=== PATIENT | female | born 1995 | race Two or more races ===

== ENCOUNTER 2021-10-10 12:29 | Emergency (ER) | payer MEDICAID, OTHER ==
[2021-10-10] MEDS ORDERED: Ketorolac 60 MG/2 ML SDV IM ONE (15:17)
[2021-10-10] MEDS ORDERED: Acetaminophen/oxyCODONE 325-5 MG Tab PO ONE (15:20)
== END 2021-10-10 17:00 | disposition home or self-care (01) ==
LOC: MW.ED 12:29
DX: N92.0 Excessive and frequent menstruation with regular cycle (principal)
CPT/HCPCS: 81001; 81025; 96372; 99284; A9270; J1885

== ENCOUNTER 2021-10-11 21:40 | Emergency (ER) | payer MEDICAID ==
[2021-10-11 22:53] LABS: BLOOD UREA NITROGEN,BUN 16 mg/dL (7.0-18.0); CARBON DIOXIDE,CO2 26.2 mmol/L (21.0-32.0); CHLORIDE,CL 106 mmol/L (98-107); GLUCOSE RANDOM 93 mg/dL (74-106); POTASSIUM,K 3.8 mmol/L (3.5-5.1); SODIUM,NA 144 mmol/L (136-145)
[2021-10-11] MEDS ORDERED: Ketorolac 30 MG/ML SDV IM ONE (22:57)
[2021-10-11] MEDS ORDERED: metroNIDAZOLE 250 MG Tab PO STA (23:54)
[2021-10-14 15:07] LABS: C.TRACHOMATIS BY TMA Negative (Negative); N.GONORRHOEAE BY TMA Negative (Negative)
== END 2021-10-12 00:03 | disposition home or self-care (01) ==
LOC: MW.ED 21:40
DX: N76.0 Acute vaginitis (principal); B96.89 Other specified bacterial agents as the cause of diseases classified elsewhere; N92.0 Excessive and frequent menstruation with regular cycle
CPT/HCPCS: 36415; 80053; 81001; 81025; 85025; 87480; 87491; 87510; 87591; 87660; 96372; 99284; A9270; J1885

== ENCOUNTER 2021-10-22 11:33 | Observation (INO) | payer MEDICAID ==
[2021-10-22] MEDS ORDERED: Sodium Chloride 0.9% 2.5 ML Syringe FLUSH PRN (12:27)
[2021-10-22] MEDS ORDERED: Sodium Chloride 0.9% 10 ML Syringe FLUSH PRN (12:27)
[2021-10-22] MEDS ORDERED: Ondansetron 4 MG/2 ML SDV IVPUSH ONE (12:28)
[2021-10-22] MEDS ORDERED: HYDROmorphone 1 MG/ML Syringe IVPUSH ONE ×2 (12:28→14:50)
[2021-10-22] MEDS ORDERED: Ketorolac 30 MG/ML SDV IVPUSH ONE (12:28)
[2021-10-22] MEDS ORDERED: Sodium Chloride 0.9% 1,000 ML IV ONE (12:28)
[2021-10-22] MEDS ORDERED: Penicillin G Benzathine 1,200,000 Units/2 ML Syringe IM ONE (13:33)
[2021-10-22 13:42] LABS: BLOOD UREA NITROGEN,BUN 8 mg/dL (7.0-18.0); CARBON DIOXIDE,CO2 24.4 mmol/L (21.0-32.0); CHLORIDE,CL 102 mmol/L (98-107); GLUCOSE RANDOM 88 mg/dL (74-106); POTASSIUM,K 3.5 mmol/L (3.5-5.1); SODIUM,NA 138 mmol/L (136-145)
[2021-10-22] MEDS ORDERED: cefOXitin 2 GM in Sodium Chloride 0.9% 100 ML IV ONE (16:32)
[2021-10-22] MEDS ORDERED: cefOXitin 2 GM in Premix Bag 1 BAG IV ONE (16:45)
[2021-10-22] MEDS ORDERED: Ibuprofen 600 MG Tab PO PRN (18:25)
[2021-10-22] MEDS ORDERED: Ketorolac 30 MG/ML SDV IVPUSH PRN (18:25)
[2021-10-22] MEDS ORDERED: Doxycycline 100 MG in Sodium Chloride 0.9% 100 ML IV SCH (19:00)
[2021-10-22] MEDS: Morphine 2 MG/ML SYRINGE IVPUSH PRN ×2 (19:39→23:35)
[2021-10-22] MEDS: Sodium Chloride 0.9% 1,000 ML IV SCH (19:40)
[2021-10-22] MEDS: Acetaminophen/oxyCODONE 325-5 MG Tab PO PRN (20:29)
[2021-10-22] MEDS: Doxycycline 100 MG in Sodium Chloride 0.9% 100 ML IV SCH (20:30)
[2021-10-22] MEDS ORDERED: cefOXitin 2 GM in Sodium Chloride 0.9% 100 ML IV SCH (23:00)
[2021-10-23] MEDS: Acetaminophen/oxyCODONE 325-5 MG Tab PO PRN ×5 (00:39→20:25)
[2021-10-23] MEDS ORDERED: Ondansetron 4 MG/2 ML SDV IVPUSH PRN (00:55)
[2021-10-23] MEDS: Morphine 2 MG/ML SYRINGE IVPUSH PRN ×4 (03:54→22:37)
[2021-10-23 07:24] LABS: BLOOD UREA NITROGEN,BUN 14 mg/dL (7.0-18.0); CARBON DIOXIDE,CO2 25.1 mmol/L (21.0-32.0); CHLORIDE,CL 105 mmol/L (98-107); GLUCOSE RANDOM 88 mg/dL (74-106); POTASSIUM,K 3.9 mmol/L (3.5-5.1); SODIUM,NA 140 mmol/L (136-145)
[2021-10-23] MEDS: Ketorolac 30 MG/ML SDV IVPUSH SCH ×3 (08:41→20:30)
[2021-10-23] MEDS: Doxycycline 100 MG in Sodium Chloride 0.9% 100 ML IV SCH ×2 (08:51→21:30)
[2021-10-23] MEDS: Acetaminophen 325 MG Tab PO PRN (13:48)
[2021-10-23] MEDS: Sodium Chloride 0.9% 1,000 ML IV SCH (20:29)
[2021-10-24] MEDS: Acetaminophen/oxyCODONE 325-5 MG Tab PO PRN ×6 (00:16→20:40)
[2021-10-24] MEDS: Ketorolac 30 MG/ML SDV IVPUSH SCH ×2 (02:30→07:49)
[2021-10-24] MEDS: Morphine 2 MG/ML SYRINGE IVPUSH PRN ×4 (05:46→22:46)
[2021-10-24] MEDS: metroNIDAZOLE/Normal Saline 500 MG in Premix Bag 1 BAG IV SCH ×3 (07:38→18:20)
[2021-10-24] MEDS: Doxycycline 100 MG in Sodium Chloride 0.9% 100 ML IV SCH ×2 (09:02→21:12)
[2021-10-24] MEDS ORDERED: Ibuprofen 600 MG Tab PO PRN (14:30)
[2021-10-24] MEDS ORDERED: Iopamidol 755 MG/ML 500 ML Multipack Bottle IVPUSH STA (16:35)
[2021-10-24] MEDS: Acetaminophen 325 MG Tab PO PRN (18:21)
[2021-10-24] MEDS ORDERED: Fluconazole 150 MG Tab PO ONE (19:01)
[2021-10-25] MEDS: metroNIDAZOLE/Normal Saline 500 MG in Premix Bag 1 BAG IV SCH ×3 (00:19→12:04)
[2021-10-25] MEDS: Sodium Chloride 0.9% 1,000 ML IV SCH (02:00)
[2021-10-25] MEDS: Acetaminophen/oxyCODONE 325-5 MG Tab PO PRN ×3 (04:11→13:10)
[2021-10-25] MEDS: Morphine 2 MG/ML SYRINGE IVPUSH PRN ×2 (05:15→10:28)
[2021-10-25] MEDS: Doxycycline 100 MG in Sodium Chloride 0.9% 100 ML IV SCH (08:53)
[2021-10-25] MEDS ORDERED: Fluconazole 150 MG Tab PO ONE (09:01)
== END 2021-10-25 13:40 | disposition home or self-care (01) ==
LOC: MW.ED 11:33 → MW.MS 16:32
PROVIDERS: ADMIT Obstetrics & Gynecology; ATTEND Obstetrics & Gynecology
DX: N73.0 Acute parametritis and pelvic cellulitis (principal); A53.9 Syphilis, unspecified; J45.909 Unspecified asthma, uncomplicated; Z98.890 Other specified postprocedural states
CPT/HCPCS: 36415; 74177; 76856; 80053; 81001; 81025; 83735; 85025; 87070; 87075; 87077; 87086; 87186; 87205; 87480; 87510; 87660; 96365; 96372; 96375; 96376; 99285; A9270; J0561; J0694; J1170; J1885; J2270; J2405; J3490; J7030; Q9967; 96366; 96367; 99283; G0378

== ENCOUNTER 2021-10-26 18:55 | Emergency (ER) | payer MEDICAID | END 2021-10-26 19:43 | disposition home or self-care (01) | LOC: MW.ED 18:55 | DX: Z76.0 Encounter for issue of repeat prescription (principal) | CPT/HCPCS: 99281; 99282 ==

== ENCOUNTER 2021-10-29 14:08 | Emergency (ER) | payer MEDICAID ==
[2021-10-29] MEDS ORDERED: Sodium Chloride 0.9% 10 ML Syringe FLUSH PRN (14:37)
[2021-10-29] MEDS ORDERED: Sodium Chloride 0.9% 2.5 ML Syringe FLUSH PRN (14:37)
[2021-10-29] MEDS ORDERED: Ketorolac 30 MG/ML SDV IVPUSH ONE (14:38)
[2021-10-29] MEDS ORDERED: Ketorolac 30 MG/ML SDV IM ONE (14:49)
[2021-10-29 15:45] LABS: BLOOD UREA NITROGEN,BUN 16 mg/dL (7.0-18.0); CARBON DIOXIDE,CO2 27.4 mmol/L (21.0-32.0); CHLORIDE,CL 105 mmol/L (98-107); GLUCOSE RANDOM 93 mg/dL (74-106); LIPASE 59 U/L (73-393); POTASSIUM,K 3.7 mmol/L (3.5-5.1); SODIUM,NA 142 mmol/L (136-145)
[2021-10-29] MEDS ORDERED: traMADol 50 MG Tab PO ONE (15:51)
== END 2021-10-29 16:12 | disposition home or self-care (01) ==
LOC: MW.ED 14:08
DX: R10.9 Unspecified abdominal pain (principal)
CPT/HCPCS: 36415; 80053; 81001; 81025; 83690; 85025; 96372; 99284; A9270; J1885; 99283

== ENCOUNTER 2022-04-07 20:58 | Emergency (ER) | payer MEDICAID ==
[2022-04-07] MEDS ORDERED: Sodium Chloride 0.9% 2.5 ML Syringe FLUSH PRN (22:25)
[2022-04-07] MEDS ORDERED: Ketorolac 30 MG/ML SDV IVPUSH ONE (22:25)
[2022-04-07] MEDS ORDERED: Sodium Chloride 0.9% 10 ML Syringe FLUSH PRN (22:25)
[2022-04-07] MEDS ORDERED: Ondansetron 4 MG/2 ML SDV IVPUSH ONE (22:25)
[2022-04-07] MEDS ORDERED: Sodium Chloride 0.9% 500 ML IV SCH (22:30)
[2022-04-07 23:40] LABS: CARBON DIOXIDE,CO2 28.1 mmol/L (21.0-32.0); POTASSIUM,K 4.1 mmol/L (3.5-5.1)
[2022-04-08] MEDS ORDERED: HYDROmorphone 1 MG/ML Syringe IVPUSH ONE (00:05)
[2022-04-08] MEDS ORDERED: traMADol 50 MG Tab PO ONE (02:12)
== END 2022-04-08 02:35 | disposition home or self-care (01) ==
LOC: MW.ED 20:58
DX: U07.1 COVID-19 (principal); R20.2 Paresthesia of skin; Z91.048 Other nonmedicinal substance allergy status
CPT/HCPCS: 36415; 74176; 80053; 81003; 83605; 83690; 83880; 84703; 85025; 93005; 96374; 96375; 99284; A9270; J1170; J1885; J2405; J3490; J7040; 93010; 99283

== ENCOUNTER 2022-07-19 17:49 | Emergency (ER) | payer SELFPAY ==
[2022-07-19] MEDS ORDERED: Acetaminophen 500 MG Tab PO ONE (20:26)
[2022-07-19 20:31] LABS: CARBON DIOXIDE,CO2 24.9 mmol/L (21.0-32.0); POTASSIUM,K 3.7 mmol/L (3.5-5.1)
== END 2022-07-19 20:58 | disposition home or self-care (01) ==
LOC: MW.ED 17:49
DX: O20.9 Hemorrhage in early pregnancy, unspecified (principal); O99.512 Diseases of the respiratory system complicating pregnancy, second trimester; J45.909 Unspecified asthma, uncomplicated; Z91.048 Other nonmedicinal substance allergy status; Z3A.14 14 weeks gestation of pregnancy
CPT/HCPCS: 36415; 76801; 80053; 81003; 84702; 85025; 99284; A9270